=== PATIENT | female | born 1975 | race Caucasian/White ===

== ENCOUNTER → 2016-04-08 | Outpatient (CLI) | payer OTHER ==
--- NOTE | 2016-04-08 17:33 | MA ---
Screening Digital Mammogram With iCAD Analysis Clinical Indications: Routine screening. Technique: Standard cephalocaudal projections are obtained. Digital breast tomosynthesis was performe d in the MLO projection with reconstruction at 1.0 mm slice thickness and composite MLO views reconst ructed. This examination is processed by the iCAD computer aided detection system. Comparison: March 2015. Breast density: Type C: Heterogeneously dense. Findings: CAD was reviewed. No masses, suspicious calcifications or secondary signs of malignancy are seen. There has been no significant change in the appearance of either breast. Impression: Negative mammogram. BI-RADS 1. Recommendation: Routine mammographic screening in one year as long as physical examination is negativ e in this patient with heterogeneously dense breast parenchyma. [facility] will send a result letter to the patient. Negative mammography should not preclude additional workup of a clinically suspicious finding. The patient's information is entered into a reminder system with a target due date for her next mammo gram.
== END ==
LOC: FIMAGING 16:13
DX: Z12.31 Encounter for screening mammogram for malignant neoplasm of breast (principal)

== ENCOUNTER 2017-02-08 01:17 | Emergency (ER) | payer OTHER ==
[2017-02-08 01:25] VITALS: BP 132/88; PULSE 99; RESP 18; TEMP 99; O2SAT 93
--- NOTE | 2017-02-08 01:28 | EDPHY ---
H & P Time Seen by Provider: 02/08/17 01:18 HPI/ROS: CHIEF COMPLAINT: Syncope, alcohol use HISTORY OF PRESENT ILLNESS: 41 year old female arrives by ambulance after she had been drinking some alcohol this evening, was dancing, had a syncopal episode on the dance floor. No loss of consciousness. No seizure activity. No incontinence. No oral trauma. No midline C-spine pain. No peripheral paresthesia, weakness, numbness. No oral trauma. REVIEW OF SYSTEMS: A ten point review of systems was performed and is negative with the exception of the items mentioned in the HPI PAST MEDICAL/SURGICAL HISTORY: no relevant medical/surgical history SOCIAL HISTORY: denies alcohol use at time of incident PHYSICAL EXAM 1) GENERAL: Well-developed, well-nourished, alert and oriented. Appears to be in no acute distress. Answering questions appropriately. 2) HEAD: Normocephalic, atraumatic 3) HEENT: Pupils equal, round, reactive to light bilaterally. Negative Horners. Nasopharynx, oropharynx, clear. No deformity or angulation of nose. No septal hematoma. No rhinorrhea. No oral trauma. Ears bilaterally with normal tympanic membranes. No hemotympanum. No fluid or blood in the external auditory canal. No raccoon eyes. No Marie sign. Teeth are normally aligned with no gross malocclusion, TMJ bilaterally nontender, facial bones nontender including the zygomatic arch, maxilla mandible. 4) NECK: No cervical collar is on. Posterior cervical spine is nontender, no stepoff, no effusion. Full range of motion which does not elicit any midline cervical spine pain, no posterior midline tenderness, no step-off. 5) LUNGS: Clear to auscultation bilaterally, no wheezes, no rhonchi, no retractions. No obvious signs of trauma. No chest wall pain. No flaring, no grunting. Moving symmetrically. No crepitus. 6) HEART: Regular rate and rhythm, 7) ABDOMEN: No guarding, no rebound, no focal tenderness, no peritoneal signs, no signs of trauma, no ecchymosis 8) MUSCULOSKELETAL: Moving all extremities, no focal areas of tenderness, no obvious trauma. 9) BACK: No midline vertebral tenderness, no fluctuance, no step-off, no obvious trauma, no visual or palpable abnormality. 10) SKIN: No laceration. No abrasion DIFFERENTIAL DIAGNOSIS: In no particular include but limited to acute alcohol use, cardiac arrhythmia, (Lucretia Mendez) Constitutional: Initial Vital Signs Temperature (C) 37.2 C 02/08/17 01:22 Heart Rate 99 02/08/17 01:22 Respiratory Rate 18 02/08/17 01:22 Blood Pressure 132/88 H 02/08/17 01:22 O2 Sat (%) 93 02/08/17 01:22 O2 Delivery Mode Room Air Allergies/Adverse Reactions: No Known Allergies Allergy (Verified 02/08/17 01:24) Home Medications: Medication Instructions Recorded Control 05/18/11 Medical Decision Making ED Course/Re-evaluation: 1:20 a.m.: Recommended EKG which patient declines. Recommend blood work which patient agrees to. Care of patient under supervision of secondary supervising physician Dr Vivas . (Lucretia Mendez) PHYSICIAN DOCUMENTATION: The patient was evaluated and managed by the Physician Gut Cleaner. My co- signature indicates that I have reviewed this chart and I agree with the findings and plan of care as documented. I am the secondary supervising physician. (Evon Vivas) - Data Points Laboratory Results: 02/08/17 01:05 Beta HCG, Qual NEGATIVE Departure - Departure Disposition: Home, Routine, Self-Care Clinical Impression: Alcohol use Condition: Good Instructions: Abuse of Alcohol (ED) Additional Instructions: Please be cautious with alcohol use in the future. An EKG was recommended which you declined. Referrals: [facility],. [Clinic] - 1-2 days without fail
== END 2017-02-08 02:02 | disposition home or self-care (01) ==
LOC: EDBD → EDUNIT#
DX: F10.929 Alcohol use, unspecified with intoxication, unspecified (principal)

== ENCOUNTER → 2017-04-15 | Outpatient (CLI) | payer OTHER | LOC: FIMAGING 16:09 | PROVIDERS: ATTEND Obstetrics & Gynecology Gynecology | DX: Z12.31 Encounter for screening mammogram for malignant neoplasm of breast (principal) ==

== ENCOUNTER → 2018-05-18 | Outpatient (CLI) | payer OTHER | LOC: FIMAGING 14:24 | PROVIDERS: ATTEND Obstetrics & Gynecology Gynecology | DX: Z12.31 Encounter for screening mammogram for malignant neoplasm of breast (principal) ==